=== PATIENT | female | born 1970 | race Two or more races ===

== ENCOUNTER 2022-04-30 08:42 | Day surgery (SDC) | payer OTHER ==
[2022-04-30 09:20] VITALS: RESP 16; BMI 24.1
[2022-04-30 12:29] VITALS: TEMP 97.9
[2022-04-30 12:51] VITALS: BP 95/62; PULSE 62
== END 2022-04-30 11:50 | disposition home or self-care (01) ==
LOC: FASU-ENDO 08:42 → FASU 08:42
PROVIDERS: ATTEND Internal Medicine Gastroenterology
PROC: 0DBN8ZX Excision of Sigmoid Colon, Via Natural or Artificial Opening Endoscopic, Diagnostic (ICD-10-PCS; principal; 2022-04-30 10:14)
DX: Z12.11 Encounter for screening for malignant neoplasm of colon (principal); K63.5 Polyp of colon; K64.1 Second degree hemorrhoids
CPT/HCPCS: 88305-TC